=== PATIENT | male | born 1945 | race African-American/Black ===

== ENCOUNTER 2017-06-30 18:27 | Emergency (ER) | payer MEDICARE ==
[~2017-06-30] VITALS: Ht 180.3 cm; Wt 88.5 kg
--- NOTE | 2017-06-30 19:12 | Emergency Room Report ---
History of Present Illness General Chief Complaint: Male Urogenital Problems Source: Patient Present Illness HPI 72yo M p/w Urinary retention that happened after he had a tooth extraction earlier today, he reports he was under anesthesia and since then he has not been able to urinate He reports this never happened before He reports no other symptoms such as fevers, or previous urinary problems Patient History Past Medical History: see triage record Reviewed Nursing Documentation: PMH: Agreed; PSxH: Agreed Nursing Documentation-PMH Past Medical History: No History, Except For Hx Hypertension: Yes Review of Systems All Other Systems: negative except mentioned in HPI Physical Exam Vital Signs Date Time Temp Pulse Resp B/P (MAP) Pulse Ox O2 Delivery O2 Flow Rate FiO2 06/30/17 18:36 98.0 129 20 159/103 95 Room Air 98.1 Sp02 EP Interpretation: reviewed, normal General Appearance: no apparent distress, alert, non-toxic Head: normocephalic Eyes: bilateral eye normal inspection, bilateral eye PERRL, bilateral eye EOMI ENT: normal ENT inspection, hearing grossly normal, normal pharynx, no angioedema, normal voice, moist mucus membranes, other - Small amount of swelling/blood at Dental extraction site Neck: normal inspection, full range of motion, supple, supple/symm/no masses Respiratory: chest non-tender, lungs clear, normal breath sounds, chest symmetrical, palpation of chest normal Cardiovascular #1: normal peripheral pulses, regular rate, rhythm Cardiovascular #2: 2+ radial (R), 2+ radial (L) Gastrointestinal: normal inspection, non tender, soft, no mass, no guarding, no rebound Rectal: deferred Genitourinary: normal inspection, no CVA tenderness Musculoskeletal: back normal, gait/station normal, normal range of motion, non- tender, no calf tenderness Neurologic: alert, responsive, access lead III-XII nml as tested, motor strength/tone normal, sensory intact, speech normal Psychiatric: judgement/insight normal, memory normal, mood/affect normal, no suicidal/homicidal ideation Skin: normal color, no rash, warm/dry, normal turgor Lymphatic: no adenopathy Medical Decision Making Diagnostic Impression: Primary Impression: Postoperative urinary retention ER Course Patient with small amount of time period of post-op urinary retention, no labs or UA sent due to this history, alvares placed and leg bag given, f/u with PMD in 2 days instructed Last Vital Signs Date Time Temp Pulse Resp B/P (MAP) Pulse Ox O2 Delivery O2 Flow Rate FiO2 06/30/17 18:36 98.0 129 20 159/103 95 Room Air 98.1 Status: improved Disposition: HOME, SELF-CARE Condition: Stable Patient Instructions: Acute Urinary Retention, Male, [id number] EDSON MASON M.D June 30, 2017 19:12
[2017-06-30 19:34] VITALS: BP 159/103
== END 2017-06-30 19:34 | disposition home or self-care (01) ==
LOC: EMR 19:03
DX: R33.8 Other retention of urine (principal); Z98.890 Other specified postprocedural states; I10 Essential (primary) hypertension
CPT/HCPCS: 99283

== ENCOUNTER → 2017-07-02 | Emergency (ER) | payer SELFPAY ==
[~2017-07-02] VITALS: Ht 180.3 cm; Wt 88.0 kg
[2017-07-02 17:00] VITALS: BP 154/82
--- NOTE | 2017-07-02 21:16 | Emergency Room Report ---
History of Present Illness General Chief Complaint: Wound Recheck/Suture Removal Source: Patient Present Illness HPI 72-year-old male presents ED for evaluation. Patient is here to have Harris catheter removed. Catheter was placed on 06/30. Patient had just completed dental surgery that day and was noted to have some urinary retention after the anesthesia. Harris catheter was placed here in ER. Patient denies any prior history of BPH or urinary retention. Denies any pain. Denies any fevers or chills. No other aggravating relieving factors. Denies any other associated symptoms Allergies: Coded Allergies: No Known Allergies (Unverified , 07/02/17) Patient History Past Medical History: HTN Past Surgical History: other - dental surgery Pertinent Family History: none Social History: Denies: smoking, alcohol use, drug use Immunizations: UTD Reviewed Nursing Documentation: PMH: Agreed; PSxH: Agreed Nursing Documentation-PMH Past Medical History: No History, Except For Hx Hypertension: Yes Review of Systems All Other Systems: negative except mentioned in HPI Physical Exam Vital Signs Date Time Temp Pulse Resp B/P (MAP) Pulse Ox O2 Delivery O2 Flow Rate FiO2 07/02/17 16:50 98.1 76 20 154/82 95 Room Air 98.1 Sp02 EP Interpretation: reviewed, normal General Appearance: no apparent distress, alert, GCS 15, non-toxic Head: normocephalic, atraumatic Eyes: bilateral eye normal inspection, bilateral eye PERRL ENT: hearing grossly normal, normal pharynx, no angioedema, normal voice Neck: full range of motion, supple/symm/no masses Respiratory: chest non-tender, lungs clear, normal breath sounds, speaking full sentences Cardiovascular #1: regular rate, rhythm, no edema Cardiovascular #2: 2+ carotid (R), 2+ carotid (L), 2+ radial (R), 2+ radial (L) , 2+ dorsalis pedis (R), 2+ dorsalis pedis (L) Gastrointestinal: normal bowel sounds, non tender, soft, non-distended, no guarding, no rebound Rectal: deferred Genitourinary: normal inspection, no CVA tenderness Musculoskeletal: back normal, gait/station normal, normal range of motion, non- tender Neurologic: alert, oriented x3, responsive, motor strength/tone normal, sensory intact, speech normal Psychiatric: judgement/insight normal, memory normal, mood/affect normal, no suicidal/homicidal ideation Reflexes: 3+ bicep (R), 3+ bicep (L), 3+ tricep (R), 3+ tricep (L), 3+ knee (R) , 3+ knee (L) Skin: normal color, no rash, warm/dry, well hydrated Lymphatic: no adenopathy Medical Decision Making Diagnostic Impression: Primary Impression: Encounter for Harris catheter removal ER Course 72-year-old male presents ED for Harris catheter removal DifferentialBPH, urinary incontinence, urinary retention Patient placed in chair. After initial history physical exam reveals male in no acute distress. Harris catheter in place. Reviewed EMR patient was seen here on 06/30 and had Harris catheter placed because likely the anesthesia was causing some urinary retention. Patient was informed that the effects may last up to 48 hours. Given no prior history of BPH or urinary retention agreed to remove Harris catheter but recommend close follow-up with PMD. I will provide him with urology referral the event that urinary retention returns Diagnosisencounter Harris catheter removal Stable and discharged home. Follow-up with PMD/urology. Return to ED if symptoms recur or worsen Last Vital Signs Date Time Temp Pulse Resp B/P (MAP) Pulse Ox O2 Delivery O2 Flow Rate FiO2 07/02/17 17:00 98.1 20 154/82 95 Room Air 98.1 07/02/17 16:50 76 Status: improved Disposition: HOME, SELF-CARE Condition: Stable Referrals: Boaz Levi MD, Sameer M.D. Patient Instructions: Acute Urinary Retention, Male, [id number] Ed Segal MD July 02, 2017 21:16
== END | disposition home or self-care (01) ==
LOC: EMR 17:28
DX: Z46.6 Encounter for fitting and adjustment of urinary device (principal); I10 Essential (primary) hypertension
CPT/HCPCS: 99283